=== PATIENT | female | born 1945 | race Caucasian/White ===

== ENCOUNTER → 2019-01-18 10:31 | Outpatient (CLI) | payer MEDICARE, OTHER, SELFPAY ==
[2019-01-03 10:04] VITALS: BMI 35.2
--- NOTE | 2019-01-18 10:37 | ECHOD_ITS ---
Reason For Study: CAD/ASHD Procedure This was a 2D Doppler, Color Flow transthoracic echocardiogram. Exam performed in department. Left Ventricle Normal size and thickness. The estimated ejection fraction is 65 %. Stage 1 diastolic dysfunction. No regional wall motion abnormalities noted. Right Ventricle Normal size and thickness. Normal systolic function. Atria The left atrium is mildly enlarged. Normal right atrium. Normal atrial septum. Mitral Valve The mitral valve is structurally normal. No prolapse or stenosis seen. Trivial eccentric mitral valve insufficiency. Tricuspid Valve Normal tricuspid valve. Trivial tricuspid valve insufficiency. Right ventricular systolic pressure estimated to be 28 mmHg. Aortic Valve Trisinus/trileaflet aortic valve. Normal aortic valve. Pulmonic Valve Normal pulmonic valve. Great Vessels Calcified aortic root. Normal arch. Normal inferior vena cava. Inferior vena cava collapse with sniff. Pericardium/Pleural No pericardial effusion. MMode/2D Measurements & Calculations LVIDd: 5.7 cm IVSd: 0.98 cm Ao root diam: 3.0 cm LVIDs: 4.0 cm LVPWd: 1.1 cm RVDd: 3.2 cm FS: 29.5 % LAV(MOD-bp): 90.7 ml LA A4 area: 27.2 cm2 LA dimension(2D): 4.1 cm LAV(MOD-bp) Indexed: 47.0 ml/m2 LAV(MOD-sp2): 79.1 ml LAV(MOD-sp4): 94.9 ml RA A4 area: 22.0 cm2 Time Measurements MV dec time: 0.21 sec Doppler Measurements & Calculations MV E max gurmeet: 106.3 cm/sec Lat Peak E' Gurmeet: 7.0 cm/sec Med Peak E' Gurmeet: 6.5 cm/sec MV A max gurmeet: 89.3 cm/sec E/E' lat: 15.1 E/E' med: 16.3 MV E/A: 1.2 Ao V2 max: 139.6 cm/sec LV V1 max: 100.2 cm/sec PA V2 max: 93.1 cm/sec Ao max P.8 mmHg LV V1 max P.0 mmHg TR max gurmeet: 237.7 cm/sec TR max P.6 mmHg Interpretation Summary The estimated ejection fraction is 65 %. Stage 1 diastolic dysfunction. The left atrium is mildly enlarged. Trivial eccentric mitral valve insufficiency. Trivial tricuspid valve insufficiency. Right ventricular systolic pressure estimated to be 28 mmHg. There is no comparison study available. The study was technically difficult. Ordering Physician: Quan Odell Referring Physician: Scott Phelan Performed By: Pati Nicole, VANIA, RVT
== END ==
PROVIDERS: Family Provider Family Medicine; PCP Family Medicine; Referring Provider Internal Medicine Cardiovascular Disease; Visit Provider Internal Medicine Cardiovascular Disease
DX: I25.2 Old myocardial infarction (principal)
CPT/HCPCS: 93306